=== PATIENT | female | born 1980 | race Two or more races ===

== ENCOUNTER 2024-02-27 04:31 | Emergency (ER) | payer MEDICAID, SELFPAY ==
[2024-02-27 04:39] VITALS: BP 131/86; PULSE 105; RESP 18; TEMP 36.9; O2SAT 97; BMI 37.5
--- NOTE | 2024-02-27 04:54 | XR_ITS ---
Examination: PA lateral chest 2 views Technique: Upright PA lateral chest 2 views Exam date and time: 04/28/2019 4054 hrs. Comparison February 17, 2023 Indications: Coughing congestion beginning 3 days ago. Findings: Normal heart size Lungs are clear. The osseous structures are intact Impression: No active disease
--- NOTE | 2024-02-27 04:55 | PD.EDRME ---
Rapid Medical Screening Exam [facility] Arrival date/time: 02/27/24 04:31 44F with history of hypothyroidism presents to ED with 3 weeks of cough and nasal congestion. Patient was seen in clinic and tested negative for flu and COVID. Patient was told she had a sinus infection and given a 5 day course of amoxicillin w/o relief. Chief Complaint: Flu Like Symptoms Vital signs: Vital Signs Temperature 98.5 F 02/27/24 04:39 Pulse Rate 105 H 02/27/24 04:39 Respiratory Rate 18 02/27/24 04:39 Blood Pressure 131/86 H 02/27/24 04:39 Pulse Oximetry (%) 97 02/27/24 04:39 Oxygen Delivery Method Room Air 02/27/24 04:39
[2024-02-27 06:15] LABS: Basophils # (Auto) 0.1 Thou/mm3 (0.0-0.2); Basophils % (Auto) 0 % (0-2.5); Eosinophils # (Auto) 0.2 Thou/mm3 (0.0-0.5); Eosinophils % (Auto) 2 % (0-10); Hematocrit 37.9 % (36.0-46.0); Hemoglobin 12.7 g/dL (12.0-16.0); Immature Granulocytes % (Auto) 1 % (0-0); Immature Granulocytes Auto 0.11 Thou/mm3 (0.00-0.00); Lymphocytes # (Auto) 1.6 Thou/mm3 (1.0-4.8); Lymphocytes % (Auto) 13 % (10-50); Mean Corpuscular HGB Conc 33.5 g/dl (31.0-37.0); Mean Corpuscular Hemoglobin 28.8 pg (25.0-35.0); Mean Corpuscular Volume 86 fL (80-100); Monocytes # (Auto) 0.9 Thou/mm3 (0.0-0.8); Monocytes % (Auto) 7 % (0-12); Neutrophils # (Auto) 9.5 Thou/mm3 (1.8-7.7); Neutrophils % (Auto) 77 % (37-80); Nucleated Red Blood Cell % 0 /100 WBC (0); Platelet Count 281 Thou/mm3 (140-440); RDW Standard Deviation 42.9 fL (36.4-46.3); Red Blood Count 4.41 Miln/mm3 (4.00-5.20); White Blood Count 12.4 Thou/mm3 (3.6-11.0)
[2024-02-27 06:35] LABS: Alanine Aminotransferase 81 U/L (10-49); Albumin/Globulin Ratio 1.2 (1.2-2.2); Alkaline Phosphatase 148 U/L (46-116); Anion Gap 5 (7-16); Aspartate Amino Transferase 62 U/L (0-34); BUN/Creatinine Ratio 16 Ratio (12-20); Bilirubin,Total 0.8 mg/dL (0.3-1.2); Blood Urea Nitrogen 13 mg/dL (9-23); Calcium 9.5 mg/dL (8.3-10.6); Calcium (Corrected) 9.5 mg/dL (8.5-10.1); Carbon Dioxide 24.8 mMol/L (20.0-31.0); Chloride 103 mMol/L (98-107); Creatinine (Component) 0.8 mg/dL (0.6-1.3); Estimated Creatinine Clearance 93.3 mL/min (>60); Globulin 4.2 gm/dL (2.3-3.5); Glucose 120 mg/dL (74-106); Osmolality,Calculated 267 (275-295); Potassium 3.7 mMol/L (3.4-5.1); Sodium 133 mMol/L (136-145); Total Protein 9.2 gm/dL (5.7-8.2); eGFR > 60 See Note
[2024-02-27 07:49] VITALS: BP 137/88; PULSE 88; RESP 18; TEMP 37.3; O2SAT 97
--- NOTE | 2024-02-27 07:53 | PD.EDURI ---
Upper Respiratory Inf. RME/HPI General Chief Complaint: Flu Like Symptoms Stated Complaint: body aches, congestion Time Seen by Provider: 02/27/24 06:34 Arrival date/time: 02/27/24 04:31 44F with history of hypothyroidism presents to ED with 3 weeks of cough and nasal congestion. Patient was seen in clinic and tested negative for flu and COVID. Patient was told she had a sinus infection and given a 5 day course of amoxicillin w/o relief. There are no other associated symptoms or aggravating factors no other modifying factors, patient denies taking medication before coming to ER today Limitations: no limitations RME / HPI RME / HPI Narrative: 02/27/24 04:31 44F with history of hypothyroidism presents to ED with 3 weeks of cough and nasal congestion. Patient was seen in clinic and tested negative for flu and COVID. Patient was told she had a sinus infection and given a 5 day course of amoxicillin w/o relief. Related Data Home Medications ?Medication ?Instructions ?Recorded ?Confirmed levothyroxine 200 mcg tablet 200 mcg PO DAILY 03/19/22 03/24/22 Previous Rx's ?Medication ?Instructions ?Recorded pantoprazole 40 mg tablet,delayed 40 mg PO BID #60 tabs 03/20/22 release (Protonix) dicyclomine 20 mg tablet 20 mg PO QID PRN abdominal pain 10/08/23 #30 tabs ibuprofen 600 mg tablet 600 mg PO Q8H PRN pain #20 tabs 01/02/24 albuterol sulfate 90 mcg/actuation 2 puff inhalation Q6H PRN 02/27/24 aerosol inhaler (Ventolin HFA) shortness of breath or wheezing #8.5 grams benzonatate 100 mg capsule 100 mg PO TID #14 caps 02/27/24 prednisone 10 mg tablet 30 mg (3 x 10 mg) PO BID 3 days 02/27/24 #18 tabs Allergies Allergy/AdvReac Type Severity Reaction Status Date / Time No Known Allergies Allergy Verified 01/02/24 13:45 Review of Systems Review of Systems Systems Reviewed: All systems reviewed, normal except as documented Constitutional Constitutional: Reports system reviewed and no additional complaints, except as documented, Reports body ache(s), Reports chills, Denies fever(s) and Reports headache(s) Eyes Eyes: Reports system reviewed and no additional complaints, except as documented and Denies blurry vision ENT Ears, Nose, Mouth, and Throat: Reports system reviewed and no additional complaints, except as documented, Reports facial pain, Reports headache(s), Reports nasal congestion and Reports nasal discharge Cardiovascular Cardiovascular: Reports system reviewed and no additional complaints, except as documented, Denies chest pain and Denies dyspnea Respiratory Respiratory: Reports system reviewed and no additional complaints, except as documented, Reports chest congestion, Reports cough, Denies dyspnea and Denies hemoptysis Gastrointestinal Gastrointestinal: Reports system reviewed and no additional complaints, except as documented and Denies abdominal pain Integumentary/Breasts Skin/Breast: Reports system reviewed and no additional complaints, except as documented and Denies rash Neurologic Neurologic: Reports system reviewed and no additional complaints, except as documented, Reports as per HPI and Reports headache(s) Past Medical History Past Medical History NEUROLOGIC: Negative Neurological Disorders, Seizures or Migraine CARDIAC: Negative Cardiac Disorders, Hypercholesterolemia, Congestive Heart Failure or Hypertension RESPIRATORY: Negative Chronic Obstructive Pulmonary Disease (COPD), Asthma or Sleep Apnea GASTROINTESTINAL: Positive Gastrointestinal Disorders and Obesity GENITOURINARY: Negative Genitourinary Disorders or Renal Disease REPRODUCTIVE: Positive Previous Pregnancies; Negative Pelvic Inflammatory Disease MUSCULOSKELETAL: Negative Musculoskeletal Disorders ENDOCRINE: Positive Endocrine Disorders and Hypothyroidism; Negative Diabetes Mellitus Type 1 or Diabetes Mellitus Type 2 HEMATOLOGIC: Negative Anemia or Sickle Cell Disease OTHER HISTORY: Negative Hospitalization, Autoimmune Disease, Falls, Blood Transfusions, Blood Transfusion Reaction, Anesthesia Reactions or Cancer Surgical History SURGICAL: Positive Section; Negative Cardiac Surgery, Endocrine Surgery, Ear Surgery or Abdominal Surgery Social History SMOKING STATUS: Never smoker ED Exam General Limitations: Present no limitations General appearance: Present alert and in no apparent distress Head Head exam: Present atraumatic Eye Eye exam: Present normal appearance, PERRL and EOMI; Absent conjunctival injection ENT ENT exam: Present normal exam, normal oropharynx and mucous membranes moist Neck Neck exam: Present normal inspection, full ROM and trachea midline Chest Chest inspection: Present normal inspection and symmetric chest wall rise Respiratory Respiratory exam: Present normal lung sounds bilaterally; Absent respiratory distress, wheezes, stridor, accessory muscle use or prolonged expiratory phase Cardiovascular Cardiovascular exam: Present regular rate, normal rhythm and normal heart sounds Abdominal Exam Abdominal exam: Present soft and normal bowel sounds; Absent distention or tenderness Extremities Exam Extremities exam: Present normal inspection and full ROM Back Exam Back exam: Present normal inspection and full ROM Neurological Exam Neurological exam: Present alert, oriented X3 and CN II-XII intact Psychiatric Psychiatric exam: Present normal affect and normal mood Skin Skin exam: Present warm, dry, intact and normal color Course Quality Measures none Orders Category Date Time Status XR chest 2V Stat Exams 02/27/24 04:54 Completed CBC Stat Lab 02/27/24 04:59 Completed CMP [Comprehensive Metabolic Panel] Stat Lab 02/27/24 04:59 Completed Cocci Serology IgM with reflex to IgG [Cocci Serology, Lab 02/27/24 04:59 Received Unk History] Stat Dexamethasone Inj [Decadron Inj] Med 02/27/24 08:01 Discontinued 10 mg IM X1 ONE Vital Signs Vital signs: Vital Signs Temperature 98.5 F 02/27/24 04:39 Pulse Rate 105 H 02/27/24 04:39 Respiratory Rate 18 02/27/24 04:39 Blood Pressure 131/86 H 02/27/24 04:39 Pulse Oximetry (%) 97 02/27/24 04:39 Oxygen Delivery Method Room Air 02/27/24 04:39 O2 saturation 97% room air within normal limits Upper Respiratory Infection MDM Narrative MDM Narrative:: 44F with history of hypothyroidism presents to ED with 3 weeks of cough and nasal congestion. Patient was seen in clinic and tested negative for flu and COVID. Patient was told she had a sinus infection and given a 5 day course of amoxicillin w/o relief. There are no other associated symptoms or aggravating factors no other modifying factors, patient denies taking medication before coming to ER today On exam patient does not appear ill or toxic in no acute distress patient has no difficulty breathing no difficulty swallowing Patient reports just finishing her antibiotics I do not believe no antibiotics are indicated Patient given steroids here discharged home with steroids Ventolin and cough medicine Chest x-ray obtained no acute pneumonic process noted CBC and CMP obtained no acute emergent findings noted Cocci is pending Patient discharged home in no distress to follow-up with primary care doctor in the next 24 to 48 hours and for any worsening symptoms to return to the ER immediately Patient data External records reviewed:: [facility] previous records Clinical information provided by:: patient Social determinants that could affect healthcare access:: none Patient has the following chronic illnesses:: Hypothyroid How is presenting disease/condition affected by chronic disease/condition?: uneffected by Evaluation data The following diagnostics were reviewed and interpreted by me:: lab results and radiology exam(s) Lab and/or radiology exams considered but not ordered:: Labs and radiology obtained Interpretation Summary: Reviewed by me Medications / Prescriptions Medications or Prescriptions considered but not ordered:: Given Rx Medication administrations:: Medication Administration History Discontinued Medications Dexamethasone Sodium Phosphate (Dexamethasone Sod Phos Inj 10 Mg/Ml Vial) 10 mg IM X1 ONE Stop: 02/27/24 08:02 Last Admin: 02/27/24 08:03 Dose: 10 mg Documented By: AM Given Consultations Consultation(s) initiated? (list below): No Diagnosis Upper Respiratory Differential Diagnosis: upper respiratory infection, sinusitis, viral infection and bronchitis Most likely diagnosis given after review of the tests above:: Viral illness Admission Indicated Admission indicated?: not indicated Admission Request Was there a request for admission?: No Disposition Plan Disposition Plan: Discharge Discharge Attestation Discharge Attestation: The patient and all family members were given an opportunity to ask questions and understood the discharge instructions. Discharge instructions specifically effects, indications for sooner follow up or return to the emergency department, and the expected course of current diagnosis. Patient condition: Stable Discharge Plan Plan Patient Disposition: HOME (Self Care) Disposition Comment: stable Prescriptions/Referrals Prescriptions/Med Rec: New prednisone 10 mg tablet 30 mg PO BID 3 Days Qty: 18 0RF benzonatate 100 mg capsule 100 mg PO TID Qty: 14 0RF albuterol sulfate [Ventolin HFA] 90 mcg/actuation HFA aerosol inhaler 2 puff inhalation Q6H PRN (Reason: shortness of breath or wheezing) Qty: 8.5 0RF No Action levothyroxine 200 mcg tablet 200 mcg PO DAILY Patient Comments: TAKE ONE TABLET BY MOUTH EVERY MORNING BEFORE MEALS FOR THYROID pantoprazole [Protonix] 40 mg Tablet,Delayed Release (Dr/Ec) 40 mg PO BID Qty: 60 2RF Rx Instructions: take 1 tablet by mouth twice daily dicyclomine 20 mg tablet 20 mg PO QID PRN (Reason: abdominal pain) Qty: 30 0RF ibuprofen 600 mg tablet 600 mg PO Q8H PRN (Reason: pain) Qty: 20 0RF Referrals: Paulette Cosme FNP [Primary Care Provider] - In 1 week Problem List Clinical Impression: URI (upper respiratory infection) Patient/Caregiver Discharge Instructions Education Materials: ED URI, Viral, No Abx (Adult) Additional Instructions: Please follow up with your primary care doctor in the next 24-48hrs for any worsening symptoms return here immediately Print Language: Sami Stand Alone Forms: Leelee Award Info., Work/School Release, Patient Portal Info Letter Attestation Attestation The patient was seen by the midlevel practitioner. I, the co-signing physician, was present during the entire ER visit. While I did not physically examine the patient, I was available for consultation as needed.
[2024-02-27] MEDS: DEXAMETHASONE SOD PHOS INJ 10 MG/ML VIAL IM (08:03)
[2024-02-27 14:14] LABS: Cocci Serology, IgM Negative (Negative)
[2024-02-29 12:33] LABS: Cocci Serology, IgG Negative (Negative)
== END 2024-02-27 08:09 | disposition home or self-care (01) ==
PROVIDERS: Physician Assistant; Emergency Provider Emergency Medicine; PCP Registered Nurse Community Health
DX: J06.9 Acute upper respiratory infection, unspecified (principal)
CPT/HCPCS: 36415; 71046; 80053; 85025; 86331; 86635; 96372; 99283; J1100

== ENCOUNTER → 2024-05-02 | Outpatient (CLI) | payer MEDICAID, SELFPAY ==
--- NOTE | 2024-05-02 09:55 | XR_ITS ---
Examination: Wrist, right 3 views Technique: Wrist AP, oblique, lateral 3 views Date and time of exam: May 02, 2024 1006 hours INDICATIONS: Palpable lump and contraction right third digit 10 months, history right hand and wrist surgery 2 years ago FINDINGS: Moderate osteopenia Mild to moderate osteoarthritis first carpometacarpal joint No fracture No avascular necrosis Mild narrowing radiocarpal joint IMPRESSION: Mild to moderate osteoarthritis first carpometacarpal joint
--- NOTE | 2024-05-02 09:55 | XR_ITS ---
Examination: Hand, right 3 views Technique: Hand AP, oblique, lateral 3 views Date and time of exam: May 02, 2024 10 0 5:00 AM INDICATIONS: Palpable lump and contraction right third digit beginning 10 minutes ago, right hand and wrist surgery 2 years ago FINDINGS: Moderate juxta-articular bone demineralization No fracture No cortical bone destruction No opaque foreign body Minimal osteoarthritis distal interphalangeal joints second through fifth digits and interphalangeal joint first digit No erosive arthritis IMPRESSION: Minimal osteoarthritis
== END | disposition home or self-care (01) ==
LOC: CDIM 09:44
PROVIDERS: PCP Registered Nurse Community Health
DX: M19.041 Primary osteoarthritis, right hand (principal); M18.11 Unilateral primary osteoarthritis of first carpometacarpal joint, right hand
CPT/HCPCS: 73110; 73130

== ENCOUNTER 2024-06-08 19:14 | Emergency (ER) | payer MEDICAID, SELFPAY ==
[2024-06-08 19:35] VITALS: BP 159/88; PULSE 80; RESP 20; TEMP 37; O2SAT 98; BMI 38.2
--- NOTE | 2024-06-08 19:38 | EDNOTE_ITS ---
Upper Extremity Injury RME/HPI General Chief Complaint: Hand/Wrist Problems Stated Complaint: RIGHT HAND PAIN Time Seen by Provider: 06/08/24 19:38 Arrival date/time: 06/08/24 19:14 44F with history of hypothyroidism presents to ED with R hand/wrist pain after she accidentally hit it against a table. Limitations: no limitations Related Data Home Medications ?Medication ?Instructions ?Recorded ?Confirmed levothyroxine 200 mcg tablet 200 mcg PO DAILY 03/19/22 03/24/22 Previous Rx's ?Medication ?Instructions ?Recorded pantoprazole 40 mg tablet,delayed 40 mg PO BID #60 tab s 03/20/22 release (Protonix) dicyclomine 20 mg tablet 20 mg PO QID PRN abdominal p ain 10/08/23 #30 tabs ibuprofen 600 mg tablet 600 mg PO Q8H PRN pain #20 t abs 01/02/24 albuterol sulfate 90 mcg/actuation 2 puff inhalation Q 6H PRN 02/27/24 aerosol inhaler (Ventolin HFA) shortness of breath or wheezing #8.5 grams benzonatate 100 mg capsule 100 mg PO TID #14 caps 02/11 10/04 Allergies Allergy/AdvReac Type Severity Reaction Status Date / Time No Known Allergies Allergy Verified 01/02/24 13:45 Review of Systems Review of Systems Systems Reviewed: All systems reviewed, normal except as documented Constitutional Constitutional: Reports system reviewed and no additional complaints, except as documented, Denies fever(s) and Denies headache(s) ENT Ears, Nose, Mouth, and Throat: Denies disequilibrium and Denies headache(s) Cardiovascular Cardiovascular: Reports system reviewed and no additional complaints, except as documented, Denies chest pain and Denies dyspnea Respiratory Respiratory: Reports system reviewed and no additional complaints, except as documented, Denies cough and Denies dyspnea Gastrointestinal Gastrointestinal: Reports system reviewed and no additional complaints, except as documented, Denies abdominal pain, Denies nausea and Denies vomiting Musculoskeletal Musculoskeletal: Reports as per HPI and Reports arthralgias Neurologic Neurologic: Reports system reviewed and no additional complaints, except as documented, Denies confusion, Denies disequilibrium and Denies headache(s) Psychiatric Psychiatric: Denies confusion Past Medical History Past Medical History NEUROLOGIC: Negative Neurological Disorders, Seizures or Migraine CARDIAC: Negative Cardiac Disorders, Hypercholesterolemia, Congestive Heart Failure or Hypertension RESPIRATORY: Negative Chronic Obstructive Pulmonary Disease (COPD), Asthma or Sleep Apnea GASTROINTESTINAL: Positive Gastrointestinal Disorders and Obesity GENITOURINARY: Negative Genitourinary Disorders or Renal Disease REPRODUCTIVE: Positive Previous Pregnancies; Negative Pelvic Inflammatory Disease MUSCULOSKELETAL: Negative Musculoskeletal Disorders ENDOCRINE: Positive Endocrine Disorders and Hypothyroidism; Negative Diabetes Mellitus Type 1 or Diabetes Mellitus Type 2 HEMATOLOGIC: Negative Anemia or Sickle Cell Disease OTHER HISTORY: Negative Hospitalization, Autoimmune Disease, Falls, Blood Transfusions, Blood Transfusion Reaction, Anesthesia Reactions or Cancer Surgical History SURGICAL: Positive Section; Negative Cardiac Surgery, Endocrine Surgery, Ear Surgery or Abdominal Surgery Social History SMOKING STATUS: Never smoker ED Exam General Limitations: Present no limitations General appearance: Present alert and in no apparent distress Head Head exam: Present atraumatic Eye Eye exam: Present normal appearance, PERRL and EOMI ENT ENT exam: Present normal exam, normal oropharynx and mucous membranes moist Neck Neck exam: Present normal inspection, full ROM and trachea midline Chest Chest inspection: Present normal inspection and symmetric chest wall rise Respiratory Respiratory exam: Present normal lung sounds bilaterally Cardiovascular Cardiovascular exam: Present regular rate, normal rhythm and normal heart sounds Abdominal Exam Abdominal exam: Present soft and normal bowel sounds Extremities Exam Extremities exam: Present full ROM Expanded Upper Extremity Exam Forearm/Wrist exam: Present full ROM (R) and tenderness Hand exam: Present full ROM and tenderness Back Exam Back exam: Present normal inspection and full ROM Neurological Exam Neurological exam: Present alert, oriented X3 and CN II-XII intact Psychiatric Psychiatric exam: Present normal affect and normal mood Skin Skin exam: Present warm, dry, intact and normal color Course Quality Measures none Orders Category Date Time Status jonnie wrap [Splint / Immobilizer] STAT Care 06/08/24 21:32 Completed XR hand comp RT min 3V Stat Exams 06/08/24 19:38 Completed XR wrist comp RT min 3V Stat Exams 06/08/24 19:38 Completed Vital Signs Vital signs: Vital Signs Temperature 98.6 F 06/08/24 19:35 Pulse Rate 80 06/08/24 19:35 Respiratory Rate 20 06/08/24 19:35 Blood Pressure 159/88 H 06/08/24 19:35 Pulse Oximetry (%) 98 06/08/24 19:35 Oxygen Delivery Method Room Air 06/08/24 19:35 O2 at 98% on RA and WNLs Extremity Injury MDM Narrative MDM Narrative:: 44F with history of hypothyroidism presents to ED with R hand/wrist pain after she accidentally hit it against a table. Physical exam reveals R wrist/hand tenderness. No anatomical snuffbox tenderness. ROM intact. Patient is afebrile, calm, and alert. XR no fx. JONNIE and travel counselor [employer] given. Patient data External records reviewed:: [facility] previous records Clinical information provided by:: patient Social determinants that could affect healthcare access:: none Patient has the following chronic illnesses:: hypothyroidism How is presenting disease/condition affected by chronic disease/condition?: uneffected by Evaluation data The following diagnostics were reviewed and interpreted by me:: radiology exam(s) Lab and/or radiology exams considered but not ordered:: ordered Interpretation Summary: above Medications / Prescriptions Medications or Prescriptions considered but not ordered:: not ordered Medication administrations:: n/a Consultations Consultation(s) initiated? (list below): No Diagnosis Upper Extremity Injury Differential Diagnosis: sprain and strain of wrist, fracture of wrist, finger sprain, dislocation of finger, Colles' fracture and fracture of hand Most likely diagnosis given after review of the tests above:: wrist sprain/strain Admission Indicated Admission indicated?: not indicated Admission Request Was there a request for admission?: No Disposition Plan Disposition Plan: Discharge Discharge Attestation Discharge Attestation: The patient and all family members were given an opportunity to ask questions and understood the discharge instructions. Discharge instructions specifically effects, indications for sooner follow up or return to the emergency department, and the expected course of current diagnosis. Patient condition: Stable Discharge Plan Plan Patient Disposition: HOME (Self Care) Disposition Comment: Stable Prescriptions/Referrals Prescriptions/Med Rec: No Action levothyroxine 200 mcg tablet 200 mcg PO DAILY Patient Comments: TAKE ONE TABLET BY MOUTH EVERY MORNING BEFORE MEALS FOR THYROID pantoprazole [Protonix] 40 mg Tablet,Delayed Release (Dr/Ec) 40 mg PO BID Qty: 60 2RF Rx Instructions: take 1 tablet by mouth twice daily dicyclomine 20 mg tablet 20 mg PO QID PRN (Reason: abdominal pain) Qty: 30 0RF ibuprofen 600 mg tablet 600 mg PO Q8H PRN (Reason: pain) Qty: 20 0RF benzonatate 100 mg capsule 100 mg PO TID Qty: 14 0RF albuterol sulfate [Ventolin HFA] 90 mcg/actuation HFA aerosol inhaler 2 puff inhalation Q6H PRN (Reason: shortness of breath or wheezing) Qty: 8.5 0RF Referrals: Paulette Cosme FNP [Primary Care Provider] - In 1 week Problem List Clinical Impression: Sprain and strain of wrist Patient/Caregiver Discharge Instructions Education Materials: ED Wrist Sprain Additional Instructions: Please follow-up with PCP within 24-48 hours and return immediately if symptoms worsen. If problem persists, recommend outpatient PT and/or MRI follow-up. In the meantime, rest, use ice/heat, and/or compression. Print Language: Haitian Stand Alone Forms: Patient Portal Info Letter PA/MULT[employer]OCAL [employer] Supervising Physician ROSE/[employer] Supervising Physician: Dr. Venegas
--- NOTE | 2024-06-08 19:38 | XR_ITS ---
Examination: Hand, right 3 views Technique: Hand AP, oblique, lateral 3 views Date and time of exam: June 08, 2024 1945 hrs. Indications: Patient fell today with injury to the hand, hand pain Findings: No acute fracture. No dislocation No foreign body Impression: No acute fracture
--- NOTE | 2024-06-08 19:38 | XR_ITS ---
Examination: Wrist, right 3 views Technique: Wrist AP, oblique, lateral 3 views Date and time of exam: June 08 2024 at 7:45 PM Indications: Patient fell today with injury to the wrist, wrist pain. Findings: No acute fracture No dislocation No foreign body Impression: No acute fracture
[2024-06-08 21:53] VITALS: RESP 18
== END 2024-06-08 21:54 | disposition home or self-care (01) ==
PROVIDERS: Emergency Provider Emergency Medicine; PCP Registered Nurse Community Health
DX: S63.501A Unspecified sprain of right wrist, initial encounter (principal); W22.8XXA Striking against or struck by other objects, initial encounter; E03.9 Hypothyroidism, unspecified
CPT/HCPCS: 73110; 73130; 99283

== ENCOUNTER → 2024-08-15 | Outpatient (CLI) | payer MEDICAID, SELFPAY ==
--- NOTE | 2024-08-15 08:30 | XR_ITS ---
Examination: Diagnostic digital mammography, unilateral, left Computer aided detection 3-D breast Tomosynthesis, unilateral Date and time of exam: August 15, 2024 0818 hours INDICATIONS: Mammogram November 18, 2023 focal asymmetry nipple level left breast CC view Technique: Nonmagnified MLO, CC views of the left breast have been obtained, reconstructed from 3-D Tomosynthesis images. R2 computer aided detection program utilized for evaluation of suspicious masses and/or abnormal calcifications. 3-D Tomosynthesis images obtained. Findings: Scattered areas of fibroglandular density. Stable focal asymmetry left breast Impression: BI-RADS category 2: Benign findings Return to yearly follow-up mammography
== END | disposition home or self-care (01) ==
LOC: CDIM 08:03
PROVIDERS: PCP Registered Nurse Community Health; Referring Provider Registered Nurse Community Health; Visit Provider Registered Nurse Community Health
DX: R92.322 Mammographic fibroglandular density, left breast (principal); N64.89 Other specified disorders of breast
CPT/HCPCS: 77061; 77065; G0279

== ENCOUNTER 2024-10-10 16:08 | Emergency (ER) | payer MEDICAID, SELFPAY ==
--- NOTE | 2024-10-10 16:11 | XR_ITS ---
Examination: Fingers, left hand fourth digit 3 views Technique: AP, oblique, lateral views left hand fourth digit 3 views. Exam date and time: 02/09/2025 1615 hours INDICATIONS: Injury to hand with fourth digit pain 3 days ago FINDINGS: Acute fracture proximal aspect distal phalanx fourth digit without significant displacement Orthopedic screw distal phalanx fifth digit IMPRESSION: Acute nondisplaced fracture distal phalanx fourth digit
[2024-10-10 17:04] VITALS: BP 157/84; PULSE 76; RESP 18; TEMP 36.7; O2SAT 98; BMI 36.7
--- NOTE | 2024-10-10 18:15 | PD.EDUPEX ---
Upper Extremity Injury RME/HPI General Chief Complaint: Extremity Injury, Upper Stated Complaint: finger injury Time Seen by Provider: 10/10/24 18:03 Source: patient, RN notes reviewed and old records reviewed Arrival date/time: 10/10/24 16:08 Mode of arrival: ambulatory Limitations: no limitations RME / HPI RME / HPI narrative: 44yof presents to ED for finger pain s/p injury 1 week ago. Patient states she smashed left fourth finger while moving furniture, reports pain and swelling still persists. No deformity reported. No medications or treatments since onset. Related Data Home Medications ?Medication ?Instructions ?Recorded ?Confirmed levothyroxine 200 mcg tablet 200 mcg PO DAILY 03/19/22 03/24/22 Previous Rx's ?Medication ?Instructions ?Recorded pantoprazole 40 mg tablet,delayed 40 mg PO BID #60 tabs 03/20/22 release (Protonix) dicyclomine 20 mg tablet 20 mg PO QID PRN abdominal pain 10/08/23 #30 tabs ibuprofen 600 mg tablet 600 mg PO Q8H PRN pain #20 tabs 01/02/24 albuterol sulfate 90 mcg/actuation 2 puff inhalation Q6H PRN 02/27/24 aerosol inhaler (Ventolin HFA) shortness of breath or wheezing #8.5 grams benzonatate 100 mg capsule 100 mg PO TID #14 caps 02/27/24 ibuprofen 600 mg tablet 600 mg PO Q6H PRN pain #20 tabs 10/10/24 Allergies Allergy/AdvReac Type Severity Reaction Status Date / Time No Known Allergies Allergy Verified 01/02/24 13:45 Review of Systems Review of Systems Systems Reviewed: All systems reviewed, normal except as documented Musculoskeletal Musculoskeletal: Denies deformity, Reports limited range of motion, Denies numbness and Denies tingling Comments: Reports finger pain/swelling Neurologic Neurologic: Denies numbness and Denies tingling Past Medical History Past Medical History GASTROINTESTINAL: Positive Obesity Surgical History SURGICAL: Positive Section OTHER SURGICAL HX: multiple ortho surgeries Social History SMOKING STATUS: Never smoker SUBSTANCE USE: does not use ALCOHOL: Never ED Exam General Limitations: Present no limitations General appearance: Present alert and in no apparent distress Head Head exam: Present atraumatic and normocephalic Eye Eye exam: Present normal appearance, PERRL and EOMI ENT ENT exam: Present normal exam and mucous membranes moist Neck Neck exam: Present normal inspection and full ROM Chest Chest inspection: Present normal inspection and symmetric chest wall rise Respiratory Respiratory exam: Present normal lung sounds bilaterally; Absent respiratory distress Cardiovascular Cardiovascular exam: Present regular rate and normal rhythm Extremities Exam Extremities exam: Present other (Tenderness/mild swelling to distal left ring finger. Limited ROM 2/2 pain. <2s cap refill, sensation intact) Neurological Exam Neurological exam: Present alert and oriented X3 Psychiatric Psychiatric exam: Present normal affect and normal mood Skin Skin exam: Present warm, dry and intact Course Quality Measures none Orders Category Date Time Status Splint / Immobilizer STAT Care 10/10/24 18:15 Completed XR finger LT min 2V Stat Exams 10/10/24 16:11 Completed Vital Signs Vital signs: Vital Signs Temperature 98.1 F 10/10/24 17:04 Pulse Rate 76 10/10/24 17:04 Respiratory Rate 18 10/10/24 17:04 Blood Pressure 157/84 H 10/10/24 17:04 Pulse Oximetry (%) 98 10/10/24 17:04 Oxygen Delivery Method Room Air 10/10/24 17:04 Extremity Injury MDM Narrative MDM Narrative:: 44yof presents to ED for finger pain s/p injury 1 week ago. Patient states she smashed left fourth finger while moving furniture, reports pain and swelling still persists. No deformity reported. No medications or treatments since onset. Patient is neurovascularly intact, compartments soft. Encouraged RICE therapy, motrin/tylenol prn pain. Ortho referral given for follow up and further mgmt. Stable for dc, RTED precautions given. Patient data External records reviewed:: [facility] previous records (06/08/24 ED visit for wrist sprain) Clinical information provided by:: patient Social determinants that could affect healthcare access:: other (specify) (poor access to healthcare) Patient has the following chronic illnesses:: Obesity How is presenting disease/condition affected by chronic disease/condition?: uneffected by Evaluation data The following diagnostics were reviewed and interpreted by me:: radiology exam(s) Lab and/or radiology exams considered but not ordered:: None Interpretation Summary: Hand x-rays: Distal phalanx fracture of fourth digit per my read Medications / Prescriptions Medications or Prescriptions considered but not ordered:: none Medication administrations:: none Consultations Consultation(s) initiated? (list below): No Diagnosis Upper Extremity Injury Differential Diagnosis: other (fracture, dislocation, sprain, strain, contusion, msk pain) Most likely diagnosis given after review of the tests above:: finger fracture Admission Indicated Admission indicated?: not indicated Admission Request Was there a request for admission?: No Disposition Plan Disposition Plan: Discharge Discharge Attestation Discharge Attestation: The patient and all family members were given an opportunity to ask questions and understood the discharge instructions. Discharge instructions specifically effects, indications for sooner follow up or return to the emergency department, and the expected course of current diagnosis. Patient condition: Stable Discharge Plan Plan Patient Disposition: HOME (Self Care) Patient condition on transfer: Stable Prescriptions/Referrals Prescriptions/Med Rec: New ibuprofen 600 mg tablet 600 mg PO Q6H PRN (Reason: pain) Qty: 20 0RF No Action levothyroxine 200 mcg tablet 200 mcg PO DAILY Patient Comments: TAKE ONE TABLET BY MOUTH EVERY MORNING BEFORE MEALS FOR THYROID pantoprazole [Protonix] 40 mg Tablet,Delayed Release (Dr/Ec) 40 mg PO BID Qty: 60 2RF Rx Instructions: take 1 tablet by mouth twice daily dicyclomine 20 mg tablet 20 mg PO QID PRN (Reason: abdominal pain) Qty: 30 0RF ibuprofen 600 mg tablet 600 mg PO Q8H PRN (Reason: pain) Qty: 20 0RF benzonatate 100 mg capsule 100 mg PO TID Qty: 14 0RF albuterol sulfate [Ventolin HFA] 90 mcg/actuation HFA aerosol inhaler 2 puff inhalation Q6H PRN (Reason: shortness of breath or wheezing) Qty: 8.5 0RF Referrals: Paulette Cosme FNP [Primary Care Provider] - In 1 week Chris Flynn MD [Physician] - (as needed) Problem List Clinical Impression: Finger fracture, left Patient/Caregiver Discharge Instructions Education Materials: ED Fracture, Finger, Closed Print Language: Japanese Stand Alone Forms: Leelee Award Info., Patient Portal Info Letter ROSE/HEENA Supervising Physician ROSE/HEENA Supervising Physician: Cristino
== END 2024-10-10 18:37 | disposition home or self-care (01) ==
PROVIDERS: Emergency Provider Emergency Medicine; PCP Registered Nurse Community Health
DX: S62.635A Displaced fracture of distal phalanx of left ring finger, initial encounter for closed fracture (principal); W23.0XXA Caught, crushed, jammed, or pinched between moving objects, initial encounter; Y93.E9 Activity, other interior property and clothing maintenance
CPT/HCPCS: 73140; 99283